=== PATIENT | male | born 1990 | race Caucasian/White ===

== ENCOUNTER 2016-05-16 10:10 | Emergency (ER) | payer SELFPAY ==
[~2016-05-16] VITALS: Ht 167.6 cm; Wt 74.0 kg
[2016-05-16 10:13] VITALS: BP 136/86
== END 2016-05-16 11:49 | disposition left against medical advice (07) ==
LOC: ED 11:43
DX: Z76.1 Encounter for health supervision and care of foundling (principal); Z53.21 Procedure and treatment not carried out due to patient leaving prior to being seen by health care provider

== ENCOUNTER 2016-08-08 11:46 | Emergency (ER) | payer SELFPAY ==
[~2016-08-08] VITALS: Ht 172.7 cm; Wt 74.2 kg
[2016-08-08 11:47] VITALS: BP 126/77
[2016-08-08] MEDS ORDERED: NEO/POLY/HC EAR SUSP 10ML LEFT EAR ONE (12:30)
== END 2016-08-08 12:58 | disposition home or self-care (01) ==
LOC: ED 12:11
DX: H60.92 Unspecified otitis externa, left ear (principal)
CPT/HCPCS: 99283

== ENCOUNTER 2016-09-19 11:17 | Emergency (ER) | payer OTHER ==
[~2016-09-19] VITALS: Ht 170.2 cm; Wt 74.0 kg
[2016-09-19] MEDS ORDERED: SODIUM CHLORIDE FLUSH 10ML SYR IVF ONE (12:30)
[2016-09-19] MEDS ORDERED: SODIUM CHLORIDE 0.9% 1,000ML IVBOLUS ONE (12:30)
[2016-09-19 12:50] LABS: ASPARTATE AMINO TRANSFERASE 22 U/L (15-37); BLOOD UREA NITROGEN 7 mg/dL (7-18)
[2016-09-19 13:42] VITALS: BP 118/66
== END 2016-09-19 13:44 | disposition home or self-care (01) ==
LOC: ED 12:04
DX: R11.2 Nausea with vomiting, unspecified (principal); R19.7 Diarrhea, unspecified; R10.30 Lower abdominal pain, unspecified
CPT/HCPCS: 36415; 80053; 81003; 83690; 85025; 99284

== ENCOUNTER 2017-01-25 17:17 | Emergency (ER) | payer OTHER ==
[~2017-01-25] VITALS: Ht 170.2 cm; Wt 76.1 kg
[2017-01-25 17:25] VITALS: BP 134/85
== END 2017-01-25 18:06 | disposition home or self-care (01) ==
LOC: ED 17:45
DX: K08.89 Other specified disorders of teeth and supporting structures (principal); F17.210 Nicotine dependence, cigarettes, uncomplicated
CPT/HCPCS: 99283

== ENCOUNTER 2017-10-30 12:48 | Emergency (ER) | payer MEDICAID, OTHER ==
[~2017-10-30] VITALS: Ht 170.2 cm; Wt 75.0 kg
[2017-10-30] MEDS ORDERED: PROCHLORPERAZINE 5 MG/ML, 2ML IVPush ONE (13:30)
[2017-10-30] MEDS ORDERED: MORPHINE SULFATE 4 MG/ML, 1ML IVPush PRN (13:30)
[2017-10-30] MEDS ORDERED: SODIUM CHLORIDE 0.9% 1,000ML IVBOLUS ONE (13:30)
[2017-10-30] MEDS ORDERED: KETOROLAC 30 MG/1 ML IVPush ONE (13:30)
[2017-10-30] MEDS ORDERED: KETOROLAC 30 MG/1 ML ONE (13:42)
[2017-10-30] MEDS ORDERED: MORPHINE SULFATE 4 MG/ML, 1ML ONE (13:42)
[2017-10-30] MEDS ORDERED: PROCHLORPERAZINE 5 MG/ML, 2ML ONE (13:42)
[2017-10-30 14:02] LABS: ANION GAP 9 mmol/L (5-15); CALCIUM 9.1 mg/dL (8.5-10.1); CHLORIDE 104 mmol/L (98-107)
[2017-10-30 14:06] LABS: CREATININE 1.53 mg/dL (0.7-1.3)
[2017-10-30 14:58] VITALS: BP 102/64
== END 2017-10-30 15:35 | disposition home or self-care (01) ==
LOC: ED 15:10
DX: N20.2 Calculus of kidney with calculus of ureter (principal); R63.0 Anorexia; Z87.442 Personal history of urinary calculi
CPT/HCPCS: 36415; 80048; 96374; 96375; 99284; J0780; J1885; J7030

== ENCOUNTER 2018-01-01 13:00 | Emergency (ER) | payer MEDICAID ==
[~2018-01-01] VITALS: Ht 170.2 cm; Wt 168.6 kg
[2018-01-01 14:11] VITALS: BP 114/76
== END 2018-01-01 14:13 | disposition home or self-care (01) ==
LOC: ED 13:10
DX: R07.89 Other chest pain (principal); F17.200 Nicotine dependence, unspecified, uncomplicated
CPT/HCPCS: 36415; 71045; 84484; 93005; 99285

== ENCOUNTER 2019-11-27 01:29 | Emergency (ER) | payer SELFPAY ==
[~2019-11-27] VITALS: Ht 170.2 cm; Wt 75.0 kg
[2019-11-27 01:31] VITALS: BP 144/84
--- NOTE | 2019-11-27 01:41 | NUR ---
patient stated "i'n not waiting. i'm going to [facility]". patient walked from triage to outside ER with steady gait unassisted.
== END 2019-11-27 01:50 | disposition left against medical advice (07) ==
LOC: ED 01:38
DX: R42 Dizziness and giddiness (principal); R11.0 Nausea
CPT/HCPCS: 93005; 99283